=== PATIENT | female | born 1990 | race Caucasian/White ===

== ENCOUNTER 2021-06-08 10:47 | Emergency (ER) | payer OTHER ==
[~2021-06-08 10:47] MED LIST: COLACE 100MG C100 MG PO; IBUPROFEN800 MG PO
[2021-06-08 12:07] LABS: HEMOGLOBIN 13.6 gm/dl (12.3-15.3); RED BLOOD COUNT 4.37 M/UL (4.00-5.10)
[2021-06-08 12:26] LABS: BUN/CREATININE RATIO 14 (0-10)
== END 2021-06-08 16:49 | disposition home or self-care (01) ==
LOC: ER1 10:47
PROVIDERS: Emergency Medicine
DX: L03.012 Cellulitis of left finger (principal); F17.200 Nicotine dependence, unspecified, uncomplicated
CPT/HCPCS: 73130; 80053; 85025; 85652; 86140; 87040; 96374; 96375; 99283; J3370; J7030; J7070